=== PATIENT | female | born 1950 | race Asian ===

== ENCOUNTER → 2017-04-27 | Outpatient (CLI) | payer MEDICARE, OTHER ==
[2017-04-27 17:13] LABS: ALANINE AMINOTRANSFERASE 79 U/L (9-52); ALKALINE PHOSPHATASE 51 U/L (38-126); ANION GAP 11 (5-19); ASPARTATE AMINO TRANSFERASE 63 U/L (14-36); BILIRUBIN,DIRECT 0.3 mg/dL (0.0-0.4); BILIRUBIN,TOTAL 0.4 mg/dL (0.2-1.3); BLOOD UREA NITROGEN 8 mg/dL (7-20); CALCIUM 9.1 mg/dL (8.4-10.2); CARBON DIOXIDE 28 mmol/L (22-30); CHLORIDE 106 mmol/L (98-107); GLUCOSE 95 mg/dL (75-110); SODIUM 144.6 mmol/L (137-145); TOTAL PROTEIN 7.4 g/dL (6.3-8.2)
[2017-04-27 18:10] LABS: C-REACTIVE PROTEIN < 5.0 mg/L (<10.0)
--- NOTE | 2017-04-28 12:02 | RADIOLOGY REPORT (SQ) ---
EXAM DESCRIPTION: MRI LUMBAR SPINE WITHOUT COMPLETED DATE/TIME: 04/27/2017 4:06 pm REASON FOR STUDY: RADICULOPATHY, LUMBAR REGION M54.16 RADICULOPATHY, LUMBAR REGION COMPARISON: MRI lumbar spine 04/13/2016 TECHNIQUE: Sagittal and Axial imaging includes T1, T2, STIR and gradient echo sequences. Coronal T2/ HASTE imaging. LIMITATIONS: None. FINDINGS: VISUALIZED UPPER ABDOMEN: Limited evaluation. No acute or suspicious findings suggested. SEGMENTATION: No transitional anatomy. The lowest well-developed disc space is labeled L5-S1. ALIGNMENT: Convex leftward lumbar curvature. VERTEBRAE: Intact. BONE MARROW: Edematous reactive vertebral body endplate changes at L2-3. Sclerotic vertebral body en dplate changes at L4-5 and L5-S1 DISC SIGNAL: Diffuse decreased T2 weighted intervertebral disc signal from L1-2 through L5-S1 POSTERIOR ELEMENTS: Multilevel advanced facet arthropathy. No definite spondylolysis HARDWARE: None in the spine. CORD AND CONUS: Normal in size and signal intensity. Conus at the L1-2 level. SOFT TISSUES: No aortic aneurysm seen. No bulky retroperitoneal adenopathy or mass. No paraspinal mas s or fluid. T11-12: At the upper edge of the field of view. Bulky bilateral facet hypertrophy is present withou t central or foraminal encroachment. T12-L1: No significant central or foraminal encroachment. Moderate bilateral facet hypertrophy. L1-L2: No significant spinal stenosis or exit foraminal stenosis. Moderate bilateral facet hypertrop hy. L2-L3: Broad diffuse posterior disc bulge and bony spurring and moderate bilateral facet and ligament hypertrophy cause moderate central canal stenosis, with partial effacement of the CSF around the lum bar nerve roots best shown on axial T2 image 9. There is moderate right and mild left foraminal narr owing from facet and uncovertebral hypertrophy right greater than left. L3-L4: Broad diffuse posterior disc bulging and bony spurring, and moderate bulky facet and ligament hypertrophy cause moderate central canal stenosis with partial effacement of the CSF around the lumba r nerve roots best shown on axial T2 image 14. Mild bilateral foraminal narrowing is present without exiting L3 nerve root impingement. L4-L5: Broad diffuse posterior disc bulge and bony spurring left greater than right and bulky bilater al facet and ligament hypertrophy cause mild central canal stenosis at L4-5 with slight asymmetric fl attening of the left lateral recess containing the left proximal L5 nerve root. This is best shown o n axial T2 image 19. There is mild right and moderate left foraminal narrowing. L5-S1: Broad diffuse posterior disc bulge and bony spurring with a small central protrusion. This ef faces the ventral epidural fat and abuts the ventral thecal sac without significant mass effect on th e exiting L5 or proximal S1 nerve roots. There is mild to moderate bilateral foraminal narrowing. SACRUM: Visualized upper sacrum intact. OTHER: No other significant findings. IMPRESSION: Diffuse degenerative changes as above TECHNICAL DOCUMENTATION: JOB ID: [id number] [employer]- All Rights Reserved
== END ==
LOC: RAD 15:06
PROVIDERS: ATTEND Pain Medicine Interventional Pain Medicine
DX: G89.4 Chronic pain syndrome (principal); M54.16 Radiculopathy, lumbar region
CPT/HCPCS: 36415; 72148; 80053; 82607; 82652; 85652; 86038; 86140; 86430